=== PATIENT | female | born 1980 | race Hispanic/Latino ===

== ENCOUNTER 2019-04-08 14:32 | Emergency (ER) | payer SELFPAY ==
[2019-04-08 15:13] LABS: #Basophils 0.1 thou/uL (0.0-0.2); #Eosinphils 0.1 thou/uL (0.0-0.7); #Lymphocytes 2.7 thou/uL (1.20-3.40); #Monocytes 0.5 thou/uL (0.11-0.59); #Neutrophils 6.3 thou/uL (1.40-6.50); %Eosinophils 0.7 % (0.0-10.0); %Lymphocytes 27.8 % (21.0-51.0); %Monocytes 5.4 % (0.0-10.0); %Neutrophils 65.2 % (42.0-75.0); Mean Corpuscular Hemoglobin 31.7 pg (27.0-31.0); Mean Corpuscular Volume 90.7 fL (78.0-98.0); Mean Platelet Volume 7.2 fL (7.4-10.4); Platelet Count 277 thou/uL (130-400); RBC Distribution Width 11.5 % (11.5-14.5); Red Blood Cell (RBC) Count 4.12 mill/uL (4.20-5.40); White Blood Cell (WBC) Count 9.7 thou/uL (4.8-10.8)
[2019-04-08 15:47] LABS: ALT (SGPT) 27 U/L (8-55); AST (SGOT) 18 U/L (5-34); Albumin 4.2 g/dL (3.5-5.0); Alkaline Phosphatase 60 U/L (40-110); Anion Gap 12 mmol/L (10-20); BUN (Urea Nitrogen) 7 mg/dL (7.0-18.7); Bilirubin, Total 0.5 mg/dL (0.2-1.2); Calc. Creatinine Clearance 0 mL/min (70-130); Calcium 8.8 mg/dL (7.8-10.44); Carbon Dioxide 24 mmol/L (22-29); Chloride 104 mmol/L (98-107); Estimated GFR-MDRD Greater than 90; Globulin 3.1 g/dL (2.4-3.5); Glucose 137 mg/dL (70-105); Protein, Total 7.3 g/dL (6.0-8.3); Sodium 137 mmol/L (136-145)
--- NOTE | 2019-04-08 15:49 | RAD ---
ONE VIEW CHEST: HISTORY: Patient is feeling anxious. Tachycardia. COMPARISON: None. FINDINGS: Moderately enlarged cardiac silhouette may be due to portable technique. Lungs and pleural spaces ar e clear. No pneumothorax or osseous abnormalities. IMPRESSION: No acute cardiopulmonary process. POS: CET
[2019-04-08] MEDS ORDERED: Lorazepam 2 MG/ML VIAL ONE (15:53)
== END 2019-04-08 16:31 | disposition home or self-care (01) ==
LOC: ERS 14:32
DX: F41.9 Anxiety disorder, unspecified (principal); F32.9 Major depressive disorder, single episode, unspecified; E78.2 Mixed hyperlipidemia
CPT/HCPCS: 36415; 71045; 80053; 84484; 85025; 93005; 96372; J2060

== ENCOUNTER 2023-01-21 08:09 | Outpatient (CLI) | payer OTHER | END 2023-01-21 08:10 | disposition home or self-care (01) | LOC: BICMAMMO 08:09 | PROVIDERS: ATTEND Family Medicine | DX: Z12.31 Encounter for screening mammogram for malignant neoplasm of breast (principal) | CPT/HCPCS: 77063; 77067 ==

== ENCOUNTER 2024-11-22 10:26 | Emergency (ER) | payer BC ==
[~2024-11-22 10:26] MED LIST: Iopamidol-370 76% 500 ML MDV (1 ML CHARGE) ONE
[2024-11-22] MEDS ORDERED: Lidocaine/Transparent Dressing 1 EACH KIT ONE (11:13)
[2024-11-22] MEDS ORDERED: Ketorolac Tromethamine 30 MG (1 mL) VIAL ONE (11:24)
[2024-11-22] MEDS ORDERED: HYDROcodone/Acetaminophen 5/325 mg Tablet ONE (11:25)
[2024-11-22] MEDS ORDERED: Fluconazole 100 MG TAB ONE (12:41)
[2024-11-22 15:17] LABS: #Basophils 0.03 10x3/uL (0.0-0.2); #Eosinophils 0.09 10x3/uL (0.0-0.7); #Monocytes 0.26 10x3/uL (0.11-0.59); #Neutrophils 2.79 10x3/uL (1.40-6.50); %Basophils 0.8 % (0.0-1.0); %Eosinophils 2.4 % (0.0-10.0); %Lymphocytes 15.0 % (21.0-51.0); %Monocytes 7.0 % (0.0-10.0); %Neutrophils 74.5 % (42.0-75.0); Hematocrit 32.8 % (36.0-47.0); Hemoglobin 10.7 g/dL (12.0-16.0); Mean Corpuscular Hemoglobin 29.6 pg (27.0-31.0); Mean Corpuscular Volume 90.6 fL (78.0-98.0); Platelet Count 267 10x3/uL (130-400); Red Blood Cell (RBC) Count 3.62 mill/uL (4.20-5.40); White Blood Cell (WBC) Count 3.74 10x3/uL (4.8-10.8)
[2024-11-22 15:37] LABS: ALT (SGPT) 55 U/L (Less than 34); AST (SGOT) 65 U/L (11-34); Albumin 3.8 g/dL (3.1-4.5); Alkaline Phosphatase 84 U/L (40-110); Anion Gap 14 mmol/L (10-20); BUN (Urea Nitrogen) 13 mg/dL (7.0-18.7); Bilirubin, Total 0.3 mg/dL (0.3-1.2); Calc. Creatinine Clearance 0 mL/min (70-130); Calcium 9.5 mg/dL (7.8-10.44); Carbon Dioxide 26 mmol/L (22-29); Chloride 104 mmol/L (98-107); Globulin 3.3 g/dL (2.4-3.5); Glucose 168 mg/dL (70-105); Potassium 3.6 mmol/L (3.5-5.1); Sodium 140 mmol/L (136-145)
== END 2024-11-22 12:47 | disposition home or self-care (01) ==
LOC: ERS 10:26
DX: K62.89 Other specified diseases of anus and rectum (principal); B37.9 Candidiasis, unspecified; E78.00 Pure hypercholesterolemia, unspecified; Z79.899 Other long term (current) drug therapy
CPT/HCPCS: 36415; 74177; 80053; 85025; 96372; J1885; Q9967

== ENCOUNTER 2024-11-23 19:31 | Emergency (ER) | payer BC ==
[2024-11-23] MEDS ORDERED: diphenhydrAMINE 25 MG CAP ONE (20:52)
[2024-11-23] MEDS ORDERED: Ketorolac Tromethamine 30 MG (1 mL) VIAL ONE (20:53)
== END 2024-11-23 23:27 | disposition home or self-care (01) ==
LOC: ERS 19:31
DX: L98.8 Other specified disorders of the skin and subcutaneous tissue (principal)
CPT/HCPCS: 96372; 99283; J1885

== ENCOUNTER 2024-12-07 11:04 | Outpatient (CLI) | payer BC | END 2024-12-07 11:05 | disposition home or self-care (01) | LOC: ULT 11:04 | PROVIDERS: ATTEND Urology | DX: N99.81 Other intraoperative complications of genitourinary system (principal); N28.89 Other specified disorders of kidney and ureter | CPT/HCPCS: 76770 ==